=== PATIENT | male | born 1985 | race Two or more races ===

== ENCOUNTER 2016-09-07 22:27 | Emergency (ER) | payer OTHER ==
--- NOTE | ~2016-09-07 | ER ---
PATIENT'S NAME: CHANTELL [facility] AGE: 31 Y [address] ROOM: [place] [address] LOCATION: [facility] ADMIT DATE: 09/07/2016 ER/Outpatient Report DISCHARGE DATE: 09/07/2016 FAMILY PHYSICIAN: Silvio Edwards MD ATTENDING PHYSICIAN: Eugenio Dempsey TIME OF ARRIVAL: 2231 hours. TIME OF EVALUATION: 2232 hours. CHIEF COMPLAINT: Foreign body in the right eye. HISTORY OF PRESENT ILLNESS: The patient is a 31-year-old male presents to the emergency department today with a chief complaint of foreign body in his right eye. He reports he was seen in [place] and was transferred here for higher level of care as they did not have a slit-lamp exam. Pain is currently 0/10 in severity as he was numb. The patient reports some photophobia. He does wear contact lenses. One of this have been removed. PAST MEDICAL HISTORY: None. PAST SURGICAL HISTORY: None. SOCIAL HISTORY: The patient denies any tobacco, alcohol, or illicit drug use. ALLERGIES: NO KNOWN DRUG ALLERGIES. MEDICATIONS: None. REVIEW OF SYSTEMS: All systems are reviewed by myself are negative with the exception of those discussed in HPI and past medical history. PHYSICAL EXAMINATION: VITAL SIGNS: Weight 85.3 kg. Blood pressure 112/71, pulse 79, respiratory rate 16, temperature 96.7, and oxygen saturation 96% on room air. [facility] AGE: 31 Y [address] ROOM: [place] [address] LOCATION: [facility] ADMIT DATE: 09/07/2016 ER/Outpatient Report DISCHARGE DATE: 09/07/2016 FAMILY PHYSICIAN: Silvio Edwards MD ATTENDING PHYSICIAN: Eugenio Dempsey GENERAL: The patient is a 31-year-old male who appears of stated age in no acute distress at this time. HEENT: Head: Normocephalic, atraumatic. Pupils are equal, round, and reactive to light and accommodation. Extraocular motions are intact. Nares are patent bilaterally. TMs are clear. Oropharynx is clear. NECK: Supple. There is no nuchal rigidity. MUSCULOSKELETAL: The patient moves all 4 extremities. SKIN: Warm and dry. LABS AND X-RAYS: None. IMPRESSION: 1. Conjunctivitis with possible foreign body. No foreign body visualized. 2. Initial visit. EMERGENCY DEPARTMENT COURSE: The patient brought back to the examination room. Seen and evaluated by myself. Slit-lamp exam is performed by myself. Proparacaine is used for anesthesia. Eye is examined. I see no evidence of foreign body. A fluorescein dye is utilized to evaluate there is no evidence of linear abrasions, there is no foreign body identified, there is no corneal ulcer noted, there is no Lora sign, I see no cell and flare. I have discussed results with the patient. The patient is a contact lens wearer. I will place the patient on ciprofloxacin and I asked he follows up with Dr. Munoz tomorrow or the next day. We discussed [id number] instructions including worsening symptoms or any other concerns to return to the emergency department as soon as possible. The patient is agreeable without further questions at this time. Visual acuity was performed right eye is 20/25, left eye is 20/20, and both eyes are 20/20. DISPOSITION: The patient is discharged home in good condition. DO SIOBHAN RICH/modl /[id number] d: 09/08/16 0305 t: 09/08/16 0601, OUTPATIENT REPORT
== END 2016-09-07 23:03 | disposition disaster alternative care site (69) ==
LOC: GACC 22:27
DX: H10.9 Unspecified conjunctivitis (principal)